=== PATIENT | male | born 1990 | race Caucasian/White ===

== ENCOUNTER 2017-04-01 09:25 | Day surgery (SDC) | payer MEDICAID ==
[2017-04-01] MEDS ORDERED: LIDOCAINE 1% 2 ML INJ ID PRN (09:50)
[2017-04-01] MEDS ORDERED: LR 1,000 ML IV ONE (09:50)
[2017-04-01] MEDS ORDERED: PROPOFOL/EMULSION 500 MG/50 ML BOTTLE IV ONE (12:01)
[2017-04-01] MEDS ORDERED: ONDANSETRON 4 MG/2 ML VIAL IVP PRN (12:12)
[2017-04-01] MEDS ORDERED: NALOXONE HCL 0.4 MG/ML INJ IVP PRN (12:12)
[2017-04-01] MEDS ORDERED: fentaNYL 100 MCG/2 ML INJ IVP PRN ×2 (12:12)
--- NOTE | 2017-04-01 12:14 | PDANEPAE ---
ANE History of Present Illness EGD ANE Past Medical History - Cardiovascular History Hx Hypertension: Yes Hx Arrhythmias: No Hx Chest Pain: No Hx Coronary Artery / Peripheral Vascular Disease: No Hx CHF / Valvular Disease: No Hx Palpitations: No - Pulmonary History Hx COPD: No Hx Asthma/Reactive Airway Disease: No Hx Recent Upper Respiratory Infection: No Hx Oxygen in Use at Home: No Hx Sleep Apnea: No - Neurologic History Hx Cerebrovascular Accident: No Hx Seizures: No Hx Dementia: No - Endocrine History Hx Diabetes: No - Liver History Hx Hepatic Disorders: No - Neurological & Psychiatric Hx Hx Neurological and Psychiatric Disorders: No - Cancer History Hx Cancer: No - Congenital Disorder History Hx Congenital Disorders: No - GI History Hx Gastrointestinal Disorders: Yes Gastrointestinal History Comment: HX OF VOMITING BLOOD IN NOVEMBER - Chronic Pain History Chronic Pain: No - Surgical History Prior Surgeries: NONE ANE Review of Systems Review of systems is: negative - Exercise capacity METS (RN): 5 METS ANE Patient History - Allergies Allergies/Adverse Reactions: No Known Allergies Allergy (Unverified 02/03/15 10:55) - Home Medications Home Medications: Ranitidine HCl 04/01/17 [Last Taken 03/31/17 20:00] - NPO status NPO Since - Liquids (Date): 03/31/17 NPO Since - Liquids (Time): 22:00 NPO Since - Solids (Date): 03/31/17 NPO Since - Solids (Time): 19:30 - Smoking Hx Smoking Status: Former smoker - Family Anes Hx Family Hx Anesthesia Complications: NO ANE Labs/Vital Signs - Vital Signs Blood Pressure: 147/84 Heart Rate: 85 Respiratory Rate: 14 O2 Sat (%): 96 Height: 180.34 cm Weight: 145.15 kg ANE Physical Exam - Airway Neck exam: FROM Mallampati Score: Class 2 - Pulmonary Pulmonary: clear to auscultation - Cardiovascular Cardiovascular: regular rate and rhythym - ASA Status ASA Status: II ANE Anesthesia Plan Anesthesia Plan: GA with mask
--- NOTE | 2017-04-01 12:23 | POSTANESTH ---
Post Anesthetic Evaluation Cardiovascular Status: Normal, Stable Respiratory Status: Normal, Stable Level of Consciousness/Mental Status: Can Participate in Eval, Alert and Oriented Pain Control: Adequate, Prn Tx Ordered Nausea/Vomiting Control: Adequate, Prn Tx Ordered Complications Possibly Related to Anesthesia: None Noted
[2017-04-01 12:48] VITALS: TEMP 97.9
--- NOTE | 2017-04-01 12:58 | GPN ---
[f rep st] PROCEDURE NOTE DATE OF PROCEDURE: 04/01/2017 PROCEDURE: Esophagogastroduodenoscopy with biopsy. INDICATION: Epigastric abdominal pain, history of hematemesis. CONSENT: Informed consent was obtained from the patient after an explanation of risks, benefits, and alternatives to the procedure. MEDICATIONS: Propofol per Anesthesia. DESCRIPTION OF EXAM: After adequate sedation was achieved, the endoscope was advanced under direct vision through the oropharynx and as far as the 2nd portion of the duodenal. Retroflexion was performed in the stomach. Patient tolerance of the exam was good. The views were good. ESTIMATED BLOOD LOSS: Minimal. COMPLICATIONS: None. FINDINGS: 1. [place] Grade A esophagitis was noted at the GE junction. This was minimal. There was no Huitron's. This is likely healing. 2. Mild gastric erythema throughout the gastric body and antrum was noted. There was no visible gastric ulcer or erosion. Biopsies were obtained from the antrum and body to rule out H pylori or other significant pathology. 3. In the duodenal bulb a small nodule was present, approximately 15 mm in diameter. This did have a small central umbilication. It was unclear if this could represent a nearly healed ulcer or some other findings. Biopsies were obtained from the nodule with an attempt to obtain submucosal tissue. 4. The 2nd portion of the duodenal was observed and was normal. Random biopsies were obtained for celiac disease. IMPRESSION: Suspect hematemesis was due to esophagitis, which is now nearly healed. Pain may also have been from either esophagitis or gastritis with or without possible nearly healed duodenal ulcer. RECOMMENDATIONS: 1. Await biopsy results. 2. Continue PPI therapy for the time being. 3. Follow up in the GI office in 2-3 months. 4. Will consider endoscopic ultrasound of the duodenal bulb nodule if biopsies not diagnostic. /[id number]/MODL MTDD
--- NOTE | 2017-04-01 13:26 | PDGENHP ---
History & Physical Chief Complaint: abd pain History of Present Illness: abd pain Pertinent Past, Social, Family History: reviewed Relevant Physical Exam: normal Cardiorespiratory Assessment: rrr. ctab
[2017-04-01 13:40] VITALS: O2SAT 96
[2017-04-01 13:41] VITALS: RESP 16
[2017-04-01 13:43] VITALS: BP 122/88; PULSE 78
== END 2017-04-01 13:16 | disposition home or self-care (01) ==
LOC: FSGY 09:25
PROVIDERS: ATTEND Internal Medicine
PROC: 0DB98ZX Excision of Duodenum, Via Natural or Artificial Opening Endoscopic, Diagnostic (ICD-10-PCS; principal; 2017-04-01 10:30)
PROC: 0DB68ZX Excision of Stomach, Via Natural or Artificial Opening Endoscopic, Diagnostic (ICD-10-PCS; principal; 2017-04-01 10:30)
DX: K20.9 Esophagitis, unspecified (principal)
CPT/HCPCS: J2704

== ENCOUNTER 2017-06-08 09:14 | Day surgery (SDC) | payer MEDICAID ==
[2017-06-08] MEDS ORDERED: LR 1,000 ML IV ONE ×2 (09:24→09:51)
--- NOTE | 2017-06-08 09:54 | PDANEPAE ---
ANE History of Present Illness h/o GERD ANE Past Medical History - Cardiovascular History Hx Hypertension: Yes Hx Arrhythmias: No Hx Chest Pain: No Hx Coronary Artery / Peripheral Vascular Disease: No Hx CHF / Valvular Disease: No Hx Palpitations: No - Pulmonary History Hx COPD: No Hx Asthma/Reactive Airway Disease: No Hx Recent Upper Respiratory Infection: No Hx Oxygen in Use at Home: No Hx Sleep Apnea: No Sleep Apnea Screening Result - Last Documented: Positive Pulmonary History Comment: ángel triggers no dx - Neurologic History Hx Cerebrovascular Accident: No Hx Seizures: No Hx Dementia: No - Endocrine History Hx Diabetes: No Obesity: severe - Liver History Hx Hepatic Disorders: No - Neurological & Psychiatric Hx Hx Neurological and Psychiatric Disorders: No - Cancer History Hx Cancer: No - Congenital Disorder History Hx Congenital Disorders: No - GI History GERD: severe Hx Gastrointestinal Disorders: Yes Gastrointestinal History Comment: 04/01/17 egd with biopsy with Priyanka. HX OF VOMITING BLOOD IN NOVEMBER - Other Health History Other Health History: none - Chronic Pain History Chronic Pain: No - Surgical History Prior Surgeries: 04/01/17 ANE Review of Systems Review of systems is: negative Review of Systems: - Exercise capacity METS (RN): 4 METS ANE Patient History - Allergies Allergies/Adverse Reactions: No Known Allergies Allergy (Verified 06/01/17 12:41) - Home Medications Home medications: home medication list seen and reviewed Home Medications: Ranitidine HCl 04/01/17 [Last Taken 03/31/17 20:00] Lisinopril 06/01/17 [Last Taken Unknown] Omeprazole [Prilosec 20 mg] 06/01/17 [Last Taken Unknown] - NPO status NPO Since - Liquids (Date): 06/07/17 NPO Since - Liquids (Time): 22:00 NPO Since - Solids (Date): 06/07/17 NPO Since - Solids (Time): 19:00 - Anes Hx Anes Hx: no prior problems - Smoking Hx Smoking Status: Never smoked - Family Anes Hx Family Hx Anesthesia Complications: none ANE Labs/Vital Signs - Vital Signs Blood Pressure: 154/97 Heart Rate: 80 Respiratory Rate: 14 O2 Sat (%): 95 Height: 180.34 cm Weight: 145.15 kg ANE Physical Exam - Airway Neck exam: FROM Mallampati Score: Class 2 Mouth exam: normal dental/mouth exam - Pulmonary Pulmonary: no respiratory distress - Cardiovascular Cardiovascular: regular rate and rhythym - ASA Status ASA Status: III ANE Anesthesia Plan Anesthesia Plan: GA with mask
[2017-06-08] MEDS ORDERED: PROPOFOL 200 MG/20 ML VIAL ONE ×7 (09:55→10:59)
--- NOTE | 2017-06-08 10:05 | PDGENHP ---
History & Physical Chief Complaint: Duodenal nodule Relevant Physical Exam: GEN: NAD. Cardiac: RRR. Lungs: CTA B. Abd: Soft, nt, nd
[2017-06-08] MEDS ORDERED: LIDOCAINE 2% 5 ML SDV ONE (10:12)
[2017-06-08] MEDS ORDERED: ALBUTEROL 3 ML DEYVIAL IH PRN (10:13)
[2017-06-08] MEDS ORDERED: NALOXONE HCL 0.4 MG/ML INJ IVP PRN (10:13)
[2017-06-08] MEDS ORDERED: ONDANSETRON 4 MG/2 ML VIAL IVP PRN (10:13)
[2017-06-08] MEDS ORDERED: LR 500 ML IV PRN (10:13)
[2017-06-08] MEDS ORDERED: ACETAMINOPHEN 500 MG TAB PO PRN (10:13)
[2017-06-08] MEDS ORDERED: LABETALOL HCL 50 MG/10 ML SYR IVP PRN (10:13)
--- NOTE | 2017-06-08 10:24 | POSTANESTH ---
Post Anesthetic Evaluation Cardiovascular Status: Normal, Stable Respiratory Status: Normal, Stable Level of Consciousness/Mental Status: Can Participate in Eval Pain Control: Adequate, Prn Tx Ordered Nausea/Vomiting Control: Adequate, Prn Tx Ordered Complications Possibly Related to Anesthesia: None Noted
--- NOTE | 2017-06-08 11:21 | GIREPORT ---
[facility] Surgical Services - Endoscopy Department Patient Name: Lanre Pope Procedure Date: 06/08/2017 10:16 AM Patient Type: Outpatient Attending / EMMA Physician: Franklin Boykin MD Procedure: Upper EUS Indications: Submucosal tumor versus extrinsic mass found on endoscopy. Duodenal bul b nodular lesion. 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 Providers: Franklin Boykin MD Medicines: Monitored Anesthesia Care Complications: No immediate complications. Description of Procedure: After obtaining informed consent, the endoscope was passed under direct vision. Throughout the procedure, the patient's blood pressure, pulse, and oxygen saturations were monitored continuously. The was introduced thro ugh the mouth, and advanced to the second part of duodenum. The Endoscope w as introduced through the mouth, and advanced to the second part of duoden um. The upper EUS was accomplished without difficulty. The patient tolerate d the procedure well. Findings: Endoscopic Finding : LA Grade B (one or more mucosal breaks greater than 5 mm, not extending between the tops of two mucosal folds) esophagitis with no bleeding was found at the gastroesophageal junction. The entire examined stomach was normal. Nodular mucosa was found in the duodenal bulb with central umbilication . Biopsies were taken with a cold forceps for histology. Verification of patient identification for the specimen was done by the physician and oumou sanchez using the patient's name and date. Estimated blood loss was minim al. Endosonographic Finding : The esophagus, stomach and duodenum were visualized endosonographically . There was no sign of significant endosonographic abnormality in the pancreatic head, in the genu of the pancreas, in the pancreatic body, i n the pancreatic tail, in the uncinate process of the pancreas, in the peripancreatic region, in the pancreatic neck, in the main pancreatic d uct, in the accessory pancreatic duct and in the ampulla. The pancreas was w ell visualized, no pathologic lymphadenopathy, no masses, no cysts, no calcifications, the pancreatic duct was well visualized from ampulla to tail, the pancreatic duct was thin in caliber, the pancreatic duct was regular in contour. A triangular intramural (subepithelial) lesion was found in the duodena l bulb. The lesion was hypoechoic. Endosonographically, the lesion appear ed to originate from within the submucosa (Layer 3). The lesion measured 5.4 mm (in maximum thickness). The lesion also measured 15.3 mm in diameter. T he outer margins were well defined. Fine needle aspiration for cytology wa s performed. Color Doppler imaging was utilized prior to needle puncture to confirm a lack of significant vascular structures within the needle pat h. Three passes were made with the 25 gauge needle using a transduodenal approach. A stylet was used. A gas regulator repairer helper was present and performed a preliminary cytologic examination. The cellularity of the specimen was adequate. Final cytology results are pending. Verification of patient identification for the specimen was done by the physician and nurse geneva ng the patient's name and date. Estimated blood loss was minimal. Estimated Blood Loss: Estimated blood loss: none. Post Op Diagnosis: - [place] Grade B reflux esophagitis. - Normal stomach. - Nodular mucosa in the duodenal bulb with umbilication. Biopsied. - There was no sign of significant pathology in the pancreatic head, in the genu of the pancreas, in the pancreatic body, in the pancreatic tail, i n the uncinate process of the pancreas, in the peripancreatic region, in the pancreatic neck, in the main pancreatic duct and in the accessory pancr eatic duct. - An intramural (subepithelial) lesion was found in the duodenal bulb. The lesion appeared to originate from within the submucosa (Layer 3). Fine needle aspiration performed. The differential includes a pancreatic res t, leiomyoma, GIST, etc. Recommendation: - Discharge patient to home (with escort). - Resume previous diet. - Use Prilosec (omeprazole) 40 mg PO BID for 2 months, then decrease do se to Omeprazole 20mg orally daily. - Await path results. Results are available within 10 days. - Thank you for allowing me to participate in the care of your patient. Attending Participation: I personally performed the entire procedure. Franklin Boykin MD Franklin Boykin MD 06/08/2017 11:21:02 AM Number of Addenda: 0 Note Initiated On: 06/08/2017 10:16 AM [email or web address]
[2017-06-08 11:26] VITALS: TEMP 97.5
[2017-06-08 11:50] VITALS: PULSE 69
[2017-06-08 11:58] VITALS: BP 137/83; RESP 17; O2SAT 100
== END 2017-06-08 12:10 | disposition home or self-care (01) ==
LOC: FSGY 09:14
PROVIDERS: ATTEND Internal Medicine Gastroenterology
PROC: 0D998ZX Drainage of Duodenum, Via Natural or Artificial Opening Endoscopic, Diagnostic (ICD-10-PCS; principal; 2017-06-08 10:30)
PROC: 0DB98ZX Excision of Duodenum, Via Natural or Artificial Opening Endoscopic, Diagnostic (ICD-10-PCS; principal; 2017-06-08 10:30)
DX: D13.2 Benign neoplasm of duodenum (principal); K21.0 Gastro-esophageal reflux disease with esophagitis; R11.2 Nausea with vomiting, unspecified
CPT/HCPCS: J2704